=== PATIENT | male | born 1985 | race Caucasian/White ===

== ENCOUNTER 2017-03-20 21:02 | Emergency (ER) | payer BC, OTHER ==
[~2017-03-20] VITALS: Ht 177.8 cm; Wt 77.9 kg
[2017-03-20 21:21] VITALS: BP 11/71
== END 2017-03-20 22:22 | disposition home or self-care (01) ==
LOC: ED 22:16
DX: M77.41 Metatarsalgia, right foot (principal)
CPT/HCPCS: 99283

== ENCOUNTER 2017-05-31 18:37 | Emergency (ER) | payer BC ==
[~2017-05-31] VITALS: Ht 177.8 cm; Wt 76.2 kg
[2017-05-31] MEDS ORDERED: ONDANSETRON ODT 8 MG ONE (18:55)
[2017-05-31] MEDS ORDERED: ONDANSETRON 2MG/ML, 2ML IVPush ONE (19:00)
[2017-05-31] MEDS ORDERED: SODIUM CHLORIDE 0.9% 1,000ML IVBOLUS ONE (19:00)
[2017-05-31] MEDS ORDERED: SODIUM CHLORIDE FLUSH 10ML SYR IVF ONE (19:00)
[2017-05-31 19:19] LABS: BLOOD UREA NITROGEN 20 mg/dL (7-18)
[2017-05-31] MEDS ORDERED: ONDANSETRON 2MG/ML, 2ML ONE (20:21)
[2017-05-31] MEDS ORDERED: OMNIPAQUE 350 MG/ML, 100ML BOTTLE ONE (20:23)
[2017-05-31] MEDS ORDERED: FAMOTIDINE 20 MG/2 ML IVP ONE (20:30)
[2017-05-31 20:44] VITALS: BP 121/65
[2017-05-31] MEDS ORDERED: MORPHINE SULFATE 4 MG/ML, 1ML ONE (21:08)
[2017-05-31] MEDS ORDERED: morphine SULFATE 10 MG/ML, 1ML IVPush ONE (21:30)
== END 2017-05-31 22:24 | disposition home or self-care (01) ==
LOC: ED 22:04
DX: E86.0 Dehydration (principal); G43.A1 Cyclical vomiting, in migraine, intractable; K52.9 Noninfective gastroenteritis and colitis, unspecified
CPT/HCPCS: 36415; 74177; 80048; 82040; 85025; 96361; 96374; 96375; 99285; J2270; J2405; J7030; Q9967; S0028

== ENCOUNTER 2020-08-04 16:48 | Emergency (ER) | payer BC, MEDICAID ==
[~2020-08-04] VITALS: Ht 180.3 cm; Wt 83.4 kg
[2020-08-04] MEDS ORDERED: SODIUM CHLORIDE 0.9% 1,000ML IVBOLUS ONE (17:30)
[2020-08-04] MEDS ORDERED: ONDANSETRON 2MG/ML, 2ML IVPush ONE (17:30)
[2020-08-04] MEDS ORDERED: ONDANSETRON 2MG/ML, 2ML ONE (17:30)
--- NOTE | 2020-08-04 17:41 | NUR ---
ASSUMED CARE OF PATIENT. PATIENT REPORTS N/V/D SINCE YESTERDAY. VS STABLE. PT WATCHING TV IN ROOM. CALL LIGHT IN PLACE. WILL CONTINUE TO MONITOR.
[2020-08-04 17:48] LABS: ALANINE AMINOTRANSFERASE 127 U/L (12-78); ALBUMIN 4.1 g/dL (3.4-5.0); ANION GAP 8 mmol/L (5-15); CALCIUM 9.3 mg/dL (8.5-10.1); CHLORIDE 108 mmol/L (98-107); CREATININE 1.12 mg/dL (0.7-1.3)
[2020-08-04 17:50] LABS: ALKALINE PHOSPHATASE 80 U/L (45-117); TOTAL PROTEIN 8.3 g/dL (6.4-8.2)
--- NOTE | 2020-08-04 18:01 | NUR ---
DR PEÑA IN ROOM
[2020-08-04 18:16] VITALS: BP 107/64
== END 2020-08-04 18:39 | disposition home or self-care (01) ==
LOC: ED 17:59
DX: R11.2 Nausea with vomiting, unspecified (principal); E86.0 Dehydration; R50.9 Fever, unspecified; R19.7 Diarrhea, unspecified; R05 Cough; R74.01 Elevation of levels of liver transaminase levels
CPT/HCPCS: 36415; 80053; 80074; 83690; 96361; 96374; 99283; J2405; J7030